=== PATIENT | female | born 1995 | race Hispanic/Latino ===

== ENCOUNTER 2016-11-17 15:44 | Emergency (ER) | payer MEDICAID ==
[2016-11-17] MEDS ORDERED: TORADOL IV ONE (16:37)
[2016-11-17] MEDS ORDERED: ZOFRAN IV ONE (16:37)
[2016-11-17] MEDS ORDERED: NACL 0.9% 1000 ML 1,000 ML IV ONE (16:37)
--- NOTE | 2016-11-17 16:42 | Emergency Department Report ---
ED Abdominal Pain HPI - General Chief Complaint: Abdominal Pain Stated Complaint: KIDNEY STONE Time Seen by Provider: 11/17/16 16:34 Source: patient Mode of arrival: Ambulatory Limitations: No Limitations - History of Present Illness Initial Comments: Pt is a 21 year old female presenting with a 3 day history of R flank pain. Reports one episode of emesis yesterday. Mild dysuria at times- reports PCP put her on abx for possible UTI on Monday. Denies fevers. Hx of stones and reports this does feel similar. No bowel changes. MD Complaint: flank pain -: Gradual, days(s) (3) Location: R flank Radiation: none Migration to: no migration Severity: moderate Severity scale (0 -10): 6 Quality: aching Consistency: constant Improves With: nothing Worsens With: nothing Associated Symptoms: nausea, vomiting - Related Data Previous Rx's Medication Instructions Recorded Last Taken Type Ciprofloxacin HCl [Ciprofloxacin 500 mg PO BID #20 tablet 11/17/16 Unknown Rx TAB] HYDROcodone/APAP 5-325 [Piggott 1 each PO Q6HR PRN #15 tablet 11/17/16 Unknown Rx 5/325] Ondansetron [Zofran Odt] 4 mg PO Q8HR PRN #20 tab.rapdis 11/17/16 Unknown Rx Allergies Allergy/AdvReac Type Severity Reaction Status Date / Time No Known Allergies Allergy Verified 03/27/15 05:31 ED Review of Systems ROS: Stated complaint: KIDNEY STONE Other details as noted in HPI Comment: All other systems reviewed and negative Constitutional: denies: chills, fever Eyes: denies: eye pain, eye discharge, vision change ENT: denies: ear pain, throat pain Respiratory: denies: cough, shortness of breath, wheezing Cardiovascular: denies: chest pain, palpitations Endocrine: no symptoms reported Gastrointestinal: abdominal pain, nausea, vomiting. denies: diarrhea Genitourinary: dysuria. denies: urgency, discharge Musculoskeletal: denies: back pain, joint swelling, arthralgia Skin: denies: rash, lesions Neurological: denies: headache, weakness, paresthesias Psychiatric: denies: anxiety, depression Hematological/Lymphatic: denies: easy bleeding, easy bruising ED Past Medical Hx - Past Medical History Previous Medical History?: Yes Hx Hypertension: No Hx Congestive Heart Failure: No Hx Diabetes: No Hx Deep Vein Thrombosis: No Hx Renal Disease: No Hx Sickle Cell Disease: No Hx Seizures: No Hx Kidney Stones: Yes Hx Asthma: No Hx COPD: No Hx HIV: No - Surgical History Past Surgical History?: Yes Additional Surgical History: , D&C - Social History Smoking Status: Never Smoker Substance Use Type: Alcohol - Medications Home Medications: Home Medications Medication Instructions Recorded Confirmed Last Taken Type Ciprofloxacin HCl [Ciprofloxacin 500 mg PO BID #20 tablet 11/17/16 Unknown Rx TAB] HYDROcodone/APAP 5-325 [Piggott 1 each PO Q6HR PRN #15 tablet 11/17/16 Unknown Rx 5/325] Ondansetron [Zofran Odt] 4 mg PO Q8HR PRN #20 tab.rapdis 11/17/16 Unknown Rx ED Physical Exam - General Limitations: No Limitations General appearance: alert, in no apparent distress - Head Head exam: Present: atraumatic, normocephalic - Eye Eye exam: Present: normal appearance, PERRL, EOMI - ENT ENT exam: Present: mucous membranes moist - Neck Neck exam: Present: normal inspection - Respiratory Respiratory exam: Present: normal lung sounds bilaterally. Absent: respiratory distress - Cardiovascular Cardiovascular Exam: Present: regular rate, normal rhythm. Absent: systolic murmur, diastolic murmur, rubs, gallop - GI/Abdominal GI/Abdominal exam: Present: soft, tenderness (very mild RUQ), normal bowel sounds. Absent: distended, guarding, rebound, rigid - Extremities Exam Extremities exam: Present: normal inspection - Back Exam Back exam: Present: normal inspection, CVA tenderness (R) - Neurological Exam Neurological exam: Present: alert, oriented X3 - Psychiatric Psychiatric exam: Present: normal affect, normal mood - Skin Skin exam: Present: warm, dry, intact, normal color. Absent: rash ED Course Vital Signs 11/17/16 11/17/16 11/17/16 16:18 17:14 18:29 Temperature 99.2 F Pulse Rate 111 H Respiratory 20 20 20 Rate Blood Pressure 129/87 O2 Sat by Pulse 100 Oximetry - Reevaluation(s) Reevaluation #1: 11/17/16 16:41 Pyelo vs stone. VSS. Will get labs and UA. Reevaluation #2: 11/17/16 20:26 NAD, stable for d/c. ED Medical Decision Making - Lab Data Result diagrams: 11/17/16 17:02 11/17/16 17:02 - Radiology Data Radiology results: image reviewed interpreted by me: possible 1 mm R UVJ stone with mild stranding around R kidney. Bilateral intrarenal calculi. No significant hydronephrosis. No other acute process noted. - Medical Decision Making After 3 hour delay, CT having difficulty getting scan sent for reading. Discussed with Dr. Nguyen and reviewed CT- which shows questionable 1 mm R UVJ stone- and agrees pt can be discharged. Will start Cipro for UTI and give meds for pain. Follow up/return precautions given. - Differential Diagnosis UTI, stone Critical care attestation.: If time is entered above; I have spent that time in minutes in the direct care of this critically ill patient, excluding procedure time. ED Disposition Clinical Impression: Pyelonephritis Disposition: DISCHARGED TO HOME OR SELFCARE Is pt being admited?: No Condition: Stable Instructions: Acute Pyelonephritis (ED), Kidney Stones (ED) Prescriptions: Ciprofloxacin HCl [Ciprofloxacin TAB] 500 mg PO BID #20 tablet HYDROcodone/APAP 5-325 [Piggott 5/325] 1 each PO Q6HR PRN #15 tablet PRN Reason: Pain Ondansetron [Zofran Odt] 4 mg PO Q8HR PRN #20 tab.rapdis PRN Reason: nausea vomiting Referrals: PRIMARY CARE, [Primary Care Provider] - 3-5 Days CASSANDRA ELAM MD [Referring] - 3-5 Days Time of Disposition: 20:30
[2016-11-17 16:57] LABS: Bacteria,Urine 1+ /HPF (Negative); Bilirubin,Urine NEG (Negative); Blood,Urine SM (Negative); Ketones,Urine 20 mg/dL (Negative); Leukocyte Esterase,Urine SM (Negative); Mucus,Urine 1+ /HPF; Nitrite,Urine NEG (Negative)
[2016-11-17] MEDS ORDERED: ROCEPHIN/NS 1 GM/50 ML 1 GM/50 ML BAG IV ONE (17:19)
[2016-11-17 17:27] LABS: Basophils % (Auto) 0.2 % (0.0-1.8); Eosinophils % (Auto) 0.2 % (0.0-4.3); Hematocrit 42.6 % (30.3-42.9); Mean Corpuscular HGB Conc 33 % (30-34); Mean Corpuscular Hemoglobin 30 pg (28-32); Mean Corpuscular Volume 90 fl (79-97); Platelet Count 267 K/mm3 (140-440); Red Blood Count 4.73 M/mm3 (3.65-5.03); Red Cell Distribution Width 13.3 % (13.2-15.2); White Blood Count 12.1 K/mm3 (4.5-11.0)
[2016-11-17 17:33] LABS: Alanine Aminotransferase 19 units/L (7-56); Albumin 4.6 g/dL (3.9-5); Albumin/Globulin Ratio 1.3 %; Alkaline Phosphatase 88 units/L (35-129); Anion Gap 21 mmol/L; BUN/Creatinine Ratio 8.57; Bilirubin,Total 0.6 mg/dL (0.1-1.2); Blood Urea Nitrogen 6 mg/dL (7-17); Calcium 9.6 mg/dL (8.4-10.2); Carbon Dioxide 24 mmol/L (22-30); Chloride 94.8 mmol/L (98-107); Glucose 96 mg/dL (65-100); Potassium 3.3 mmol/L (3.6-5.0); Sodium 136 mmol/L (137-145); Total Protein 8.2 g/dL (6.3-8.2)
[2016-11-17] MEDS ORDERED: PERCOCET 5/325 PO ONE (19:02)
[2016-11-17 20:40] VITALS: BP 117/74
--- NOTE | 2016-11-18 11:12 | Cat Scan Report ---
CT ABDOMEN AND PELVIS WITHOUT CONTRAST INDICATION: Right flank pain, hematuria. History of stones. COMPARISON: 07/28/2015 FINDINGS: Noncontrast abdomen and pelvis CT performed. LUNG BASES: Minimal right middle lobe scarring and a small, 2-3 mm right lower lobe calcified granuloma incompletely imaged, axial series 2, image 1. Normal heart size. No effusions. Nonspecific distal esophageal wall thickening, not excluded for gastroesophageal reflux and/or hiatal hernia, amongst others. Right hemidiaphragm slightly elevated. ABDOMEN: Please note that sensitivity to detect small visceral lesions is limited due to the absence of intravenous or oral contrast. Significant improvement in moderate to severe right hydronephrosis since July 2015, though mild fullness/slight hydronephrosis may remain. Ureter not well seen, though may also be slightly prominent with periureteral fat stranding extending to the renal pelvis and subtle right perinephric as well. Two small right intrarenal calculi are stable, approximately 3 mm interpolar, axial image 123, series 2 and the other 2 mm at the lower pole, axial image 166. Subtle increased corticomedullary echogenicity bilaterally now evident. Grossly unremarkable unenhanced liver, spleen, pancreas, adrenals, nonaneurysmal abdominal aorta and IVC. Contracted gallbladder, suboptimally assessed. Nonopacified GI tract evaluation also limited, though grossly nonobstructive. Mild colonic stool. Few right lower quadrant lymph nodes measure up to approximately 1 cm or smaller and more than 5 in number. No ascites. Small fat containing umbilical hernia with a transverse neck of approximately 4 mm. PELVIS: Few small pelvic phleboliths again noted with interval nonvisualization/passage of the right ureterovesical junction/bladder calculus. Right distal ureter also difficult to accurately follow to the bladder base. Urinary bladder suboptimally distended and assessed. Grossly unremarkable uterus, adnexa and rectosigmoid. No free fluid or significant adenopathy. Unremarkable bones. CONCLUSION: 1. Significant interval improvement in moderate to severe right hydroureteronephrosis since July 2015, though mild fullness/slight hydronephrosis may remain. Mild nonspecific right periureteral and perinephric fat stranding also noted in this patient. 2. 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 3. Nonvisualization/interval passage of previously seen right ureterovesical junction/bladder calculus. 4. Few other incidental findings, as above. Please note that this exam is now made available to me for dictation due to recent PAC/[employer] technical issues. A preliminary report for this exam was though conveyed by Dr. Sinclair to the ER at the time of the study. Thank you for the opportunity to participate in this patient's care.
== END 2016-11-17 20:51 | disposition home or self-care (01) ==
LOC: ED 15:44
DX: N12 Tubulo-interstitial nephritis, not specified as acute or chronic (principal); Z87.442 Personal history of urinary calculi
CPT/HCPCS: 36415; 74176; 80053; 81001; 81025; 85025; 96365; 96375; 99284; J0696; J1885; J2405; J7030